=== PATIENT | male | born 1930 ===

== ENCOUNTER 2017-04-15 22:41 | Emergency (ER) | payer SELFPAY ==
[~2017-04-15] VITALS: Ht 172.7 cm; Wt 75.0 kg
[2017-04-15 22:44] VITALS: Ht 172.7 cm; Wt 75.0 kg
[2017-04-15] MEDS ORDERED: BACITRACIN 0.9 GM OINT TOP ONE (23:30)
--- NOTE | 2017-04-16 00:21 | RADRPT ---
PROCEDURE: CT Cervical Spine without contrast. CLINICAL INDICATION: Trauma TECHNIQUE: Noncontrast CT of the cervical spine was performed with axial images. Coronal and sagitta l images were also performed. The administered radiation dose was CTDI vol = 22 mGy, DLP = 447 mGy- cm. COMPARISON: There are no similar studies submitted for comparison. 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 This causes some mild spinal canal and mild to moderate neural forami nal narrowing throughout the cervical spine. Vertebral body stature and alignment are maintained. No acute fracture or subluxation is identified. The paravertebral and paraspinous soft tissues are unremarkable. Atherosclerotic calcifications are noted within the carotid arteries. IMPRESSION: No acute fracture or subluxation. RPTAT: HIKT .Memo Titus MD, MD Date Time Electronically viewed and signed by .Memo Titus MD, on 04/16/2017 00:21 .T/
[2017-04-16] MEDS ORDERED: TYL500 PO (03:54)
[2017-04-16] MEDS ORDERED: ACETAMINOPHEN 500 MG TAB PO STA (03:56)
--- NOTE | 2017-04-16 03:59 | ERD ---
ER Documentation Chief Complaint Date/Time DATE: 04/16/17 TIME: 03:56 Chief Complaint bump on head, abrasion, hematoma on head after falling from chair,no loc HPI This 87-year-old male suffered a fall and family was helping him get into the car and the granddaughter accidentally put his leg and wrong and he fell to the ground a few feet and hit his head. He has a mild abrasion there now. He did not lose consciousness. He denies any other injury does not have pain at any other site except for the back of his head where he has the abrasion. Is otherwise healthy and had no lightheadedness chest pain shortness of breath and continues to have no symptoms except for the localized pain on the head. He is not any blood thinning medications except for an 81 mg aspirin daily. ROS All systems reviewed and are negative except as per history of present illness. Medications Home Meds Active Scripts Acetaminophen* (Tylenol*) 500 Mg Tab, 500 MG PO Q6 Y for MILD PAIN LEVEL 1-3, # 20 TAB Prov:ROSALINA GRAY DO 04/16/17 Allergies Allergies: Coded Allergies: No Known Allergy (Unverified , 04/15/17) PMhx/Soc History of Surgery: Yes (vericose vein repair) Anesthesia Reaction: No Hx Miscellaneous Medical Probl: Yes ("a little diabetes") Hx Alcohol Use: No Hx Substance Use: No Hx Tobacco Use: No Smoking Status: Unknown if ever smoked Physical Exam Vitals Vital Signs Date Time Temp Pulse Resp B/P Pulse Ox O2 Delivery O2 Flow Rate FiO2 04/15/17 22:44 96.5 86 20 132/66 92 Physical Exam Const: [] Distress Head: 2 x 4 cm abrasion to the back of the head, no active bleeding, mild edema surrounding. Eyes: Normal Conjunctiva EOMI, NOEMI ENT: Normal External Ears, Nose and Mouth. Neck: Full range of motion..~ No meningismus. Resp: Clear to auscultation bilaterally Cardio: Regular rate and rhythm, no murmurs Skin: No petechiae or rashes Back: No midline or flank tenderness Ext: No cyanosis, or edema, no deformities or joint pain, distal pulses intact all 4 extremity Neur: Awake and alert and oriented 3, no focal deficits, cranial nerves II through XII intact, cerebellar finger to nose intact. Results 24 hrs Current Medications Medications (Trade) Dose Ordered Sig/Yael Route PRN Reason Start Time Stop Time Status Last Admin Dose Admin Bacitracin (Bacitracin Oint (Ud)) 1 applic ONCE ONCE TOP 04/15/17 23:30 04/15/17 23:31 DC 04/15/17 23:23 Procedures/MDM Due to head injury with abrasion with no signs of intracranial hemorrhage or fracture. Patient was given Tylenol and a tetanus shot. Is being discharged with Tylenol and strict return precautions the ER. Primary care follow-up in the next couple of days. CT head interpretation: I see no acute process, no skull fracture, no hemorrhage , no mass-effect no midline shift. CT spine interpretation: I see no acute process, no fracture no subluxation, no dislocation. Departure Diagnosis: Primary Impression: Abrasion head Additional Impression: Acute head injury Condition: Stable Patient Instructions: HEAD INJURY, No Wake-Up (Adult) Additional Instructions: Llame al doctor MAANA y joel tyler NIKHIL PARA DENTRO DE 1-2 JOSEPH.Dgale a la secretaria que nosotros le instruimos hacer esta nikhil.Avise o llame si shea condicin se empeora antes de la nikhil. Regresa aqui si peor o no mejor. ROSALINA GRAY DO Apr 16, 2017 03:59
[2017-04-16] MEDS ORDERED: DIPHTH/TET/ACEL PERTUSS (ADULT) 0.5 ML VIAL IM* ONE (04:00)
[2017-04-16 04:30] VITALS: BP 145/72; PULSE 76; RESP 18; TEMP 97.6
[2017-04-16] MEDS ORDERED: BACITRACIN 0.5%/ZINC 28.35 GM OINT TOP ONE (04:30)
--- NOTE | 2017-04-16 09:19 | RADRPT ---
PROCEDURE: CT Brain without contrast. CLINICAL INDICATION: Fall, occipital abrasion trauma TECHNIQUE: A CT of the brain was performed utilizing axial imaging from the skull base through the vertex without intravenous contrast. Multiplanar reformatted images were made.The CTDIvol is 43.05 mGy and the DLP is 720.23 mGycm. One or more the following dose reduction techniques were utilized: Automated exposure control, adjus tment of the mA and / or kV according to patient's size, or use of iterative reconstruction techniqu e. COMPARISON: 04/15/2017 FINDINGS: There is no intracranial hemorrhage, mass effect, or midline shift. No extra-axial fluid collection is seen. Mild to moderate atrophy is identified with compensatory ventricular and sulcal enlargeme nt. Mild to moderate decreased attenuation is seen in the periventricular and deep white matter, co mpatible with microvascular ischemic disease. 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 The osseous structures and visualized paranasal sinuses are unremarkable. Arterial calcif ication. 9 mm likely prominent perivascular space in left sub lenticular region. IMPRESSION: 1. No evidence of acute intracranial pathology. Minimal occipital extracranial soft tissue swelling . 2. Mild to moderate diffuse atrophy. 3. 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 4. 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 RPTAT: HJES .Joselo Jon MD, MD Date Time Electronically viewed and signed by .Joselo Jon MD, MD on 04/16/2017 03:26 .S/
== END 2017-04-16 04:30 | disposition home or self-care (01) ==
LOC: E/R 22:41
DX: S00.81XA Abrasion of other part of head, initial encounter (principal); E11.9 Type 2 diabetes mellitus without complications; R93.0 Abnormal findings on diagnostic imaging of skull and head, not elsewhere classified; W01.10XA Fall on same level from slipping, tripping and stumbling with subsequent striking against unspecified object, initial encounter; Y92.9 Unspecified place or not applicable
CPT/HCPCS: 70450; 72125; 90471; 90715